=== PATIENT | male | born 1975 | race Caucasian/White ===

== ENCOUNTER → 2022-02-08 16:29 | Outpatient (CLI) | payer OTHER, SELFPAY ==
--- NOTE | ~2022-02-08 | MR_ITS ---
EXAMINATION: MR thoracic spine wo con DATE: 02/08/2022 17:23 INDICATION: Spondylolisthesis at lumbosacral region. Mid back pain. TECHNIQUE: Magnetic resonance imaging (MRI) of the thoracic spine was performed without intravenous c ontrast. Sagittal localizer T1-weighted FSE of the cervical spine was obtained. Thoracic spine sequen beto included sagittal T2-weighted FSE, sagittal T1-weighted FSE, sagittal T2-weighted FS FSE, and axi al T2-weighted FSE. COMPARISON: None FINDINGS: Bone alignment is normal. Vertebral body heights are normal. There is mildly decreased disc height from T4-T5 through T8-T9 and moderately decreased disc height at T11-T12. There is multilevel facet joint osteoarthritis, severe at multiple levels in upper thoracic spine. On the right, there i s mild neural foraminal stenosis at T1-T2, T2-T3, T3-T4, and T7-T8. On the left, there is mild neural foraminal stenosis at T2-T3, T3-T4, T4-T5, T5-T6, and T6-T7. At T1-T2, there is an extrusion in righ t lateral recess with mild central canal stenosis. At T2-T3, there is a central extrusion with mild c entral canal stenosis. At T3-T4, there is a right central extrusion with mild central canal stenosis. At T7-T8, there is a right central extrusion with mild central canal stenosis. At T8-T9, there is a left central protrusion with annular fissure with mild central canal stenosis. At T11-T12, the disc i s bulging with mild central canal stenosis. The spinal cord signal intensity is normal. IMPRESSION: 1. Moderate thoracic spondylosis. Reviewed, dictated and finalized at location A.
--- NOTE | ~2022-02-08 | MR_ITS ---
EXAMINATION: MR lumbar spine wo con DATE: 02/08/2022 17:35 INDICATION: Spondylolisthesis of lumbosacral region. Mid back pain. TECHNIQUE: Magnetic resonance imaging (MRI) of the lumbar spine was performed without intravenous con trast. Sequences included sagittal T2-weighted FSE, sagittal T2-weighted FS FSE, sagittal T1-weighted FSE, and axial T2-weighted FSE. COMPARISON: Lumbar spine MRI 10/11/2018 FINDINGS: There is 3 degrees dextrocurvature of lumbar spine. There are changes of anterior fusion pr ocedure at L5-S1 with interbody device. There are changes of posterior fusion procedure from L4 to S1 with pedicle screws. Vertebral body heights are normal. There is moderately decreased disc height at T11-T12 and moderately decreased disc height at L4-L5. The distal spinal cord signal intensity is no rmal. The conus medullaris is at L1-L2. The following disc levels are specifically discussed: L1-L2: The disc does not extend beyond the endplate margin. There is mild bilateral facet joint osteo arthritis. There is no neural foraminal stenosis. There is no central canal stenosis. L2-L3: There is a right subarticular zone extrusion that abuts right L3 nerve root in right lateral r ecess. There is moderate right and mild left facet joint osteoarthritis. There is mild bilateral neur al foraminal stenosis. There is mild central canal stenosis. L3-L4: The disc does not extend beyond the endplate margins. There is mild bilateral facet joint oste oarthritis. There is no neural foraminal stenosis. There is no central canal stenosis. L4-L5: The disc is bulging and has an annular fissure. There is mild bilateral facet joint hypertroph y. There is mild bilateral neural foraminal stenosis. There is no central canal stenosis. There is po sterior decompression. L5-S1: There is no facet joint hypertrophy. There is no neural foraminal stenosis. There is no centra l canal stenosis. There is posterior decompression. IMPRESSION: 1. Mild lumbar spondylosis with interval worsening at L2-L3. 2. Anterior fusion procedure at L5-S1 and posterior fusion procedure from L4 to S1. Reviewed, dictated and finalized at location A.
== END ==
PROVIDERS: PCP Physician Assistant
DX: M43.17 Spondylolisthesis, lumbosacral region (principal); M47.814 Spondylosis without myelopathy or radiculopathy, thoracic region; M47.816 Spondylosis without myelopathy or radiculopathy, lumbar region; Z98.1 Arthrodesis status
CPT/HCPCS: 72146; 72148

== ENCOUNTER 2022-10-04 16:19 | Outpatient (CLI) | payer OTHER, SELFPAY ==
--- NOTE | ~2022-10-04 | XR_ITS ---
EXAMINATION: XR chest 2V 10/04/2022 16:32 INDICATION: Unexplained weight loss. PROCEDURE: 2 view chest COMPARISON: 10/01/2009 FINDINGS: The lungs are clear. The cardiomediastinal silhouette is within normal limits. There are no pleural effusions. There is no pneumothorax suspected. IMPRESSION: 1: NO ACUTE CARDIOPULMONARY DISEASE. Reviewed, dictated and finalized at location B.
== END 2022-10-04 16:20 | disposition home or self-care (01) ==
PROVIDERS: PCP Physician Assistant; Visit Provider Physician Assistant
DX: R63.4 Abnormal weight loss (principal)
CPT/HCPCS: 71046